=== PATIENT | male | born 1980 | race Caucasian/White ===

== ENCOUNTER → 2016-08-14 | Outpatient (CLI) | payer OTHER ==
[~2016-08-14] MED LIST: ACET-1311 PO; ALBUAER19 INH; BENZ-89 PO; DOCU100C31 PO; DPKEC500 PO; LEVE1TAB57 PO; RISP4TAB7 PO; SERT50TA PO; TOPI100T20 PO; TRAZ100T29 PO; [UNRECOGNIZED DRUG - OTHER] TOP
--- NOTE | 2016-08-14 09:57 | DIAGNOSTIC IMAGING REPORT ---
RIGHT HAND 3 VIEWS CLINICAL HISTORY: Right hand injury. FINDINGS: 3 views of the right hand are obtained. No prior studies are available for comparison at the time of dictation. The skeletal structures are well mineralized. There is a comminuted and angulated fracture through the distal shaft of the fifth metacarpal with overlying soft tissue edema. No intra-articular extension is seen. No additional fracture is identified. The joint spaces of the hand are well-maintained. IMPRESSION: Angulated boxer's fracture of the fifth metacarpal as above. Electronically signed by: Taran Quevedo M.D. 08/14/2016 9:56 AM Dictated Date/Time: 08/14/2016 9:54 AM
== END | disposition home or self-care (01) ==
LOC: C.RDSM 12:34
PROVIDERS: ATTEND Physician Assistant
DX: S62.326A Displaced fracture of shaft of fifth metacarpal bone, right hand, initial encounter for closed fracture (principal); X58.XXXA Exposure to other specified factors, initial encounter

== ENCOUNTER → 2016-09-23 | Outpatient (CLI) | payer OTHER ==
[~2016-09-23] MED LIST changes: -BENZ-89 PO; +CGN1 PO
--- NOTE | 2016-09-23 11:04 | DIAGNOSTIC IMAGING REPORT ---
RIGHT HAND MIN 3 VIEWS CLINICAL HISTORY: 36 years-old Male presenting with F/U RIGHT HAND FX. TECHNIQUE: Frontal, oblique, and lateral views of the right hand were obtained. COMPARISON: 08/14/2016. FINDINGS: Redemonstration of the fracture of the distal fifth metacarpal, which is comminuted and mildly angulated with apex dorsal malalignment. Fracture plane remains evident with interval development of periosteal reaction consistent with healing. The fracture does not appear to extend into the fifth metacarpophalangeal joint. Radiocarpal and intercarpal articulations intact. No new malalignment. IMPRESSION: 1. Incomplete healing of the angulated boxer's fracture of the fifth metacarpal. Fracture plane remains evident. Electronically signed by: Erasmo Hughes M.D. 09/23/2016 11:02 AM Dictated Date/Time: 09/23/2016 11:00 AM
== END | disposition home or self-care (01) ==
LOC: C.RDSM 10:50
PROVIDERS: ATTEND Physician Assistant
DX: Z09 Encounter for follow-up examination after completed treatment for conditions other than malignant neoplasm (principal); S62.316G Displaced fracture of base of fifth metacarpal bone, right hand, subsequent encounter for fracture with delayed healing; X58.XXXD Exposure to other specified factors, subsequent encounter